=== PATIENT | male | born 1965 | race Caucasian/White ===

== ENCOUNTER 2021-06-28 09:35 | Observation (INO) | payer OTHER ==
[~2021-06-28] VITALS: Ht 175.3 cm; Wt 97.5 kg
[2021-06-28 10:21] LABS: BASOPHILS # (AUTO) 0.1 (0.0-0.1); BASOPHILS % 0.8 % (0.0-1.0); EOSINOPHILS # (AUTO) 0.3 (0.0-0.4); EOSINOPHILS % 3.9 % (0.0-6.0); HEMATOCRIT 51.4 % (38.2-49.6); LYMPHOCYTES # (AUTO) 1.9 (1.0-3.2); MEAN CORPUSCULAR HEMOGLOBIN 31.7 pg (28-32); MEAN CORPUSCULAR HGB CONC 33.1 g/dL (31-35); MEAN CORPUSCULAR VOLUME 95.7 fL (81-99); MONOCYTES # (AUTO) 0.8 (0.2-0.8); MONOCYTES % 10.3 % (4.4-11.3); NEUTROPHILS # (AUTO) 4.5 (2.1-6.9); NEUTROPHILS % 59.7 % (38.7-80.0); PLATELET COUNT 240 x10e3/uL (140-360); RED BLOOD COUNT 5.37 x10e6/uL (4.3-5.7); RED CELL DISTRIBUTION WIDTH 12.7 % (11.7-14.4)
[2021-06-28 10:24] LABS: INR 0.87; PROTHROMBIN TIME 12.5 seconds (11.9-14.5)
[2021-06-28 10:25] LABS: PARTIAL THROMBOPLASTIN TIME 28.1 seconds (23.8-35.5)
[2021-06-28 10:30] LABS: ALBUMIN 4.4 g/dL (3.5-5.0); ALBUMIN/GLOBULIN RATIO 1.4 (0.8-2.0); ANION GAP 14.8 mmol/L (8-16); CALCIUM 8.9 mg/dL (8.4-10.2); CREATININE, SERUM 1.07 mg/dL (0.72-1.25); POTASSIUM 3.8 mmol/L (3.5-5.1)
[2021-06-28 10:51] LABS: CREATINE KINASE MB 5.2 ng/mL (0-5.0); THYROID STIMULATING HORMONE 2.793 uIU/mL (0.350-4.940)
[2021-06-28] MEDS ORDERED: SODIUM CHLORIDE 0.9% 1000ML 1,000 ML IV STA (11:13)
[2021-06-28] MEDS ORDERED: ONDANSETRON HCL INJ 2MG/ML 2ML 2 MG/ML VIAL IV PRN (12:00)
[2021-06-28] MEDS ORDERED: ACETAMINOPHEN 325 MG TAB PO PRN (12:00)
[2021-06-28] MEDS ORDERED: BENZONATATE 100 MG CAP PO PRN (12:00)
[2021-06-28] MEDS: FAMOTIDINE 20 MG/2 ML VIAL IV SCH ×2 (12:28→17:34)
[2021-06-28] MEDS: SODIUM CHLORIDE 0.9% 1000ML 1,000 ML IV SCH ×2 (12:28→20:47)
[2021-06-28 14:05] VITALS: BP 134/87
[2021-06-28 14:12] VITALS: BP 134/87
[2021-06-28] MEDS ORDERED: FLONASE ALLERG9.9 ML INH (14:12)
[2021-06-28] MEDS ORDERED: ATORVASTATIN CA20 MG PO (14:12)
[2021-06-28 14:20] VITALS: BP 134/87
[2021-06-28 17:40] VITALS: BP 166/82
[2021-06-28 18:23] LABS: CREATINE KINASE MB 4.1 ng/mL (0-5.0)
[2021-06-28] MEDS ORDERED: HYDRALAZINE HCL 20 MG/ML VIAL IV PRN (19:00)
[2021-06-28 19:55] VITALS: BP 157/94
[2021-06-28 21:19] VITALS: BP 157/94
[2021-06-29] VITALS (7 sets, daily range): BP systolic 146–155; BP diastolic 85–98
[2021-06-29 00:36] LABS: CREATINE KINASE 407 IU/L (30-200)
[2021-06-29] MEDS: SODIUM CHLORIDE 0.9% 1000ML 1,000 ML IV SCH (04:50)
[2021-06-29 06:11] LABS: BASOPHILS # (AUTO) 0.1 (0.0-0.1); BASOPHILS % 0.7 % (0.0-1.0); EOSINOPHILS # (AUTO) 0.3 (0.0-0.4); EOSINOPHILS % 3.3 % (0.0-6.0); HEMATOCRIT 47.1 % (38.2-49.6); HEMOGLOBIN 15.8 g/dL (14.0-18.0); LYMPHOCYTES # (AUTO) 1.8 (1.0-3.2); LYMPHOCYTES % 20.5 % (18.0-39.1); MEAN CORPUSCULAR HEMOGLOBIN 31.7 pg (28-32); MEAN CORPUSCULAR HGB CONC 33.5 g/dL (31-35); MEAN CORPUSCULAR VOLUME 94.4 fL (81-99); MONOCYTES # (AUTO) 0.8 (0.2-0.8); MONOCYTES % 8.6 % (4.4-11.3); NEUTROPHILS # (AUTO) 5.8 (2.1-6.9); NEUTROPHILS % 66.6 % (38.7-80.0); PLATELET COUNT 234 x10e3/uL (140-360); RED BLOOD COUNT 4.99 x10e6/uL (4.3-5.7); RED CELL DISTRIBUTION WIDTH 12.6 % (11.7-14.4)
[2021-06-29 07:19] LABS: ALBUMIN 3.6 g/dL (3.5-5.0); ALBUMIN/GLOBULIN RATIO 1.3 (0.8-2.0); ANION GAP 13.8 mmol/L (8-16); CALCIUM 8.1 mg/dL (8.4-10.2); CHOL/HDL RATIO 3.6 (3.9-4.7); CREATININE, SERUM 0.88 mg/dL (0.72-1.25); POTASSIUM 3.8 mmol/L (3.5-5.1)
[2021-06-29] MEDS: FAMOTIDINE 20 MG/2 ML VIAL IV SCH (08:34)
[2021-06-29] MEDS ORDERED: LOSARTAN POTASSIUM 25 MG TAB PO SCH (09:00)
[2021-06-29] MEDS ORDERED: TESSALON PERLE100 MG PO (12:14)
[2021-06-29] MEDS ORDERED: COZAAR25 MG PO (12:14)
[2021-06-29] MEDS ORDERED: PANTOPRAZOLE SO40 MG PO ×2 (12:14→18:18)
[2021-06-29] MEDS ORDERED: ONDANSETRON HCL 4 MG ORAL DISINTEGRATING TAB PO PRN (16:00)
[2021-06-29] MEDS ORDERED: BENZONATATE100 MG PO (18:18)
[2021-06-29] MEDS ORDERED: LOSARTAN POTASS25 MG PO (18:18)
[2021-06-29] MEDS ORDERED: FAMOTIDINE 20 MG TAB PO SCH (21:00)
== END 2021-06-29 16:10 | disposition home or self-care (01) ==
LOC: ER 09:45 → ERHOLD 11:53 → IMCU 13:46
PROVIDERS: ADMIT Internal Medicine; ATTEND Internal Medicine
DX: J12.9 Viral pneumonia, unspecified (principal); F41.9 Anxiety disorder, unspecified; E78.5 Hyperlipidemia, unspecified; Z85.46 Personal history of malignant neoplasm of prostate; Z90.79 Acquired absence of other genital organ(s); K21.9 Gastro-esophageal reflux disease without esophagitis; Z20.822 Contact with and (suspected) exposure to COVID-19; M62.82 Rhabdomyolysis; I10 Essential (primary) hypertension; J06.9 Acute upper respiratory infection, unspecified
CPT/HCPCS: 36415 ×2; 71045; 78452; 80053 ×2; 80061; 82550 ×2; 82553 ×2; 83735; 84443; 84484 ×2; 85025 ×2; 85610; 85730; 93005 ×2; 93017; 93306; 94799 ×2; 99251; 99284; A9502; G0378 ×2; J7030 ×2; U0002